=== PATIENT | female | born 2000 | race African-American/Black ===

== ENCOUNTER 2023-06-27 10:20 | Inpatient (IN) | payer OTHER ==
[2023-06-27] MEDS ORDERED: hydrALAZINE 20 MG/ML VIAL SLOW IVP PRN ×3 (10:40→14:58)
[2023-06-27 10:47] VITALS: BMI 37.4
[2023-06-27 11:13] LABS: #Eosinphils 0.1 10x3/uL (0.0-0.5); #Monocytes 0.6 10x3/uL (0.0-1.1); #Neutrophils 5.4 10x3/uL (1.5-8.4); %Basophils 0.4 % (0.0-2.0); %Eosinophils 1.1 % (0.0-6.0); %Neutrophils 72.1 % (40.0-75.0); Hematocrit 30.8 % (34.9-44.5); Hemoglobin 10.3 g/dL (12.0-15.5); Mean Corpuscular HGB CONC 33.4 g/dL (32.0-36.0); Mean Corpuscular Hemoglobin 30.6 pg (27.0-33.0); Mean Corpuscular Volume 91.4 fl (81.6-98.3); Mean Platelet Volume 9.2 fl (7.4-10.4); Platelet Count 259 10x3/uL (150-450); RBC Distribution Width 13.6 % (11.5-14.5); Red Blood Cell (RBC) Count 3.37 10x6/uL (3.90-5.03); White Blood Cell (WBC) Count 7.5 10x3/uL (3.5-10.5)
[2023-06-27 11:22] LABS: ALT (SGPT) Less than 7 U/L (8-55); AST (SGOT) 11 U/L (5-34); Albumin 3.1 g/dL (3.5-5.0); Alkaline Phosphatase 113 U/L (40-100); Anion Gap 12 mmol/L (10-20); BUN (Urea Nitrogen) 8 mg/dL (7.0-18.7); Bilirubin, Total 0.4 mg/dL (0.2-1.2); Calc. Creatinine Clearance 258 mL/min (70-130); Calcium 8.9 mg/dL (7.8-10.44); Carbon Dioxide 21 mmol/L (22-29); Chloride 108 mmol/L (98-107); Estimated GFR 134; Globulin 3.5 g/dL (2.4-3.5); Glucose 117 mg/dL (70-105); Potassium 3.7 mmol/L (3.5-5.1); Protein, Total 6.6 g/dL (6.0-8.3); Sodium 137 mmol/L (136-145)
[2023-06-27 11:33] LABS: Creatinine, Urine 121.77 mg/dL (47-110)
[2023-06-27] MEDS ORDERED: Lidocaine 1% (PF) 30 ML VIAL SC PRN (12:29)
[2023-06-27] MEDS ORDERED: Ondansetron PF 4 MG/2 ML Vial IVP PRN (12:29)
[2023-06-27] MEDS ORDERED: Promethazine HCl 25 MG/ML VIAL IM PRN (12:29)
[2023-06-27] MEDS ORDERED: Misoprostol 200 MCG TAB PR PRN (12:29)
[2023-06-27] MEDS ORDERED: Oxytocin 30 units/NS 500 ML 500 ML IV SCH ×2 (12:30→12:45)
[2023-06-27] MEDS ORDERED: HYDROcodone/Acetaminophen 5/325 mg Tablet PO PRN ×2 (12:32)
[2023-06-27] MEDS ORDERED: Ibuprofen 800 MG TAB PO PRN (12:32)
[2023-06-27] MEDS ORDERED: Penicillin G Potassium 5 MILL.UNITS in Sodium Chloride 0.9% 100 ML IVPB SCH (12:45)
[2023-06-27] MEDS ORDERED: Lidocaine 2% MPF 10 ML AMP (For Epidural Use) ONE (14:00)
[2023-06-27] MEDS ORDERED: Bupivacaine PF 0.5% 30 ML VIAL ONE (14:00)
[2023-06-27] MEDS ORDERED: Bupivacaine 0.25% HCL 30 ML VIAL ONE (14:00)
[2023-06-27] MEDS: Misoprostol 100 MCG TAB VAG SCH ×3 (14:18→21:29)
[2023-06-27 14:25] LABS: Hematocrit 32.2 % (34.9-44.5); Hemoglobin 10.9 g/dL (12.0-15.5); Mean Corpuscular HGB CONC 33.9 g/dL (32.0-36.0); Mean Corpuscular Hemoglobin 31.7 pg (27.0-33.0); Mean Corpuscular Volume 93.6 fl (81.6-98.3); Mean Platelet Volume 9.4 fl (7.4-10.4); Platelet Count 264 10x3/uL (150-450); RBC Distribution Width 13.6 % (11.5-14.5); Red Blood Cell (RBC) Count 3.44 10x6/uL (3.90-5.03)
[2023-06-27] MEDS ORDERED: Labetalol HCl 100 MG/20 ML VIAL ONE (14:49)
[2023-06-27] MEDS ORDERED: Lorazepam 2 MG/ML VIAL SLOW IVP PRN (14:58)
[2023-06-27] MEDS ORDERED: Labetalol HCl 100 MG/20 ML VIAL SLOW IVP PRN ×3 (14:58)
[2023-06-27] MEDS ORDERED: Magnesium Sulfate 20 gm/500 ml 20 GM/500 ML BAG IVPB PRN (14:58)
[2023-06-27] MEDS ORDERED: Calcium Gluc 4.6 MEQ/10 ML (100 MG/ML) SLOW IVP PRN (14:58)
[2023-06-27 16:15] LABS: HBSAg Index 0.16 S/CO (0-0.99); Hep B Surf Ag - L&D Non-Reactive S/CO (NonReactive)
[2023-06-27 16:17] LABS: Syphilis Antibody Nonreactive (Nonreactive); Syphilis Antibody Index 0.04 S/CO (<1.00 Non-Reactive)
[2023-06-27] MEDS: Penicillin G 2.5 MILL.units 2.5 MILL.UNITS in Premix 1 BAG IVPB SCH (21:34)
[2023-06-28] MEDS: Penicillin G 2.5 MILL.units 2.5 MILL.UNITS in Premix 1 BAG IVPB SCH ×3 (01:49→12:27)
[2023-06-28] MEDS: fentaNYL 50 mcg/mL 1 mL Vial SLOW IVP SCH ×2 (09:17→11:16)
[2023-06-28] MEDS ORDERED: fentaNYL 50 mcg/mL 1 mL Vial ONE (11:12)
[2023-06-28] MEDS ORDERED: fentaNYL/Ropivacaine Epidural 100 ML ONE (12:19)
[2023-06-28] MEDS ORDERED: Moisturizing Cream (Eucerin) 113 GM JAR TOP PRN ×2 (12:50→21:32)
[2023-06-28] MEDS ORDERED: Acetaminophen 325 MG TAB PO PRN (12:50)
[2023-06-28] MEDS ORDERED: Naloxone HCl 0.4 mg/ml Vial IVP PRN ×4 (12:50→21:32)
[2023-06-28] MEDS ORDERED: Ondansetron PF 4 MG/2 ML Vial IVP PRN ×3 (12:50→21:32)
[2023-06-28] MEDS ORDERED: diphenhydrAMINE 50 MG/ML VIAL IVP PRN ×2 (12:50→21:32)
[2023-06-28] MEDS ORDERED: Promethazine HCl 25 MG/ML VIAL IM PRN ×2 (12:50→21:32)
[2023-06-28] MEDS ORDERED: Lactated Ringer's 500 ML IV PRN (12:50)
[2023-06-28] MEDS ORDERED: ePHEDrine Sulfate 50 MG/10 ML VIAL SLOW IVP PRN (12:50)
[2023-06-28] MEDS ORDERED: fentaNYL 2 mcg/Ropivacaine 0.2% Epidural 100 ML CADD EPIDURAL SCH (13:00)
[2023-06-28] MEDS ORDERED: Communication Order-Pharmacy FS SCH ×2 (13:00→21:45)
[2023-06-28] MEDS: Lactated Ringer's 1,000 ML IV SCH (13:48)
[2023-06-28] MEDS ORDERED: Famotidine/PF 20 mg/2ml Vial SLOW IVP PRN (20:07)
[2023-06-28] MEDS ORDERED: Bicitra 30 ML UDCUP PO PRN (20:07)
[2023-06-28] MEDS ORDERED: Azithromycin 500 MG in Sodium Chloride 0.9% 250 ML 250 ML IVPB SCH (20:15)
[2023-06-28] MEDS ORDERED: CEFAZOLIN 2 GM in Sodium Chloride 0.9% 100 ML IVPB SCH (20:15)
[2023-06-28] MEDS ORDERED: Oxytocin 10 UNITS/ML VIAL ONE ×2 (20:18→20:59)
[2023-06-28] MEDS ORDERED: Dexamethasone 4 mg/ml Vial ONE ×2 (20:18→20:54)
[2023-06-28] MEDS ORDERED: Ondansetron PF 4 MG/2 ML Vial ONE (20:18)
[2023-06-28] MEDS ORDERED: Morphine PF 10 MG/10 ML VIAL ONE (20:18)
[2023-06-28] MEDS ORDERED: CEFAZOLIN 2 GM VIAL ONE (20:19)
[2023-06-28] MEDS ORDERED: Azithromycin 500 MG VIAL ONE (20:19)
[2023-06-28] MEDS ORDERED: Ketorolac Tromethamine 30 MG/ML VIAL ONE (21:26)
[2023-06-28] MEDS ORDERED: fentaNYL 50 mcg/mL 1 mL Vial SLOW IVP PRN (21:32)
[2023-06-28] MEDS ORDERED: Meperidine HCl/PF 25 MG/ML VIAL SLOW IVP PRN (21:32)
[2023-06-28] MEDS ORDERED: Morphine 4 MG/ML VIAL SLOW IVP PRN (21:32)
[2023-06-28] MEDS ORDERED: Naloxone HCl 0.4 mg/ml Vial IV PRN (21:32)
[2023-06-28] MEDS ORDERED: Promethazine HCl 25 MG SUPP PR PRN (21:32)
[2023-06-28] MEDS ORDERED: Ketorolac Tromethamine 30 MG/ML VIAL IVP SCH (21:45)
[2023-06-28 22:23] LABS: Analyzer IN Cardio CS NICU; Critical Notified By: Udy, RRT
[2023-06-29] MEDS: Misoprostol 100 MCG TAB VAG SCH ×3 (02:47→02:53)
[2023-06-29] MEDS: Penicillin G 2.5 MILL.units 2.5 MILL.UNITS in Premix 1 BAG IVPB SCH ×2 (02:48→02:49)
[2023-06-29] MEDS: Lactated Ringer's 1,000 ML IV SCH (02:49)
[2023-06-29] MEDS ORDERED: Lanolin Ointment 7 GM TUBE TOP PRN (02:55)
[2023-06-29] MEDS ORDERED: hydrALAZINE 20 MG/ML VIAL SLOW IVP PRN (02:55)
[2023-06-29] MEDS ORDERED: Boostrix 0.5 ML (Tdap) VIAL (>/=7 yrs of age) IM ONE (02:55)
[2023-06-29] MEDS ORDERED: Ketorolac Tromethamine 30 MG/ML VIAL IVP PRN ×2 (04:00→08:12)
[2023-06-29 04:45] LABS: Hematocrit 31.1 % (34.9-44.5); Hemoglobin 10.3 g/dL (12.0-15.5); Mean Corpuscular HGB CONC 33.1 g/dL (32.0-36.0); Mean Corpuscular Hemoglobin 30.4 pg (27.0-33.0); Mean Corpuscular Volume 91.7 fl (81.6-98.3); Mean Platelet Volume 9.1 fl (7.4-10.4); Platelet Count 248 10x3/uL (150-450); RBC Distribution Width 13.5 % (11.5-14.5); Red Blood Cell (RBC) Count 3.39 10x6/uL (3.90-5.03); White Blood Cell (WBC) Count 16.2 10x3/uL (3.5-10.5)
[2023-06-29] MEDS: Prenatal Vitamin 1 TAB PO SCH (08:33)
[2023-06-29] MEDS: Ibuprofen 800 MG TAB PO SCH ×2 (12:09→19:55)
[2023-06-29] MEDS ORDERED: HYDROcodone/Acetaminophen 5/325 mg Tablet PO PRN (12:09)
[2023-06-29] MEDS: HYDROcodone/Acetaminophen 5/325 mg Tablet PO PRN ×3 (14:18→22:11)
[2023-06-29] MEDS: Simethicone Chewable 80 MG TAB PO PRN (17:45)
[2023-06-30] MEDS: HYDROcodone/Acetaminophen 5/325 mg Tablet PO PRN ×3 (02:29→10:50)
[2023-06-30 05:29] LABS: Hematocrit 26.1 % (34.9-44.5); Hemoglobin 8.7 g/dL (12.0-15.5); Mean Corpuscular HGB CONC 33.3 g/dL (32.0-36.0); Mean Corpuscular Hemoglobin 31.3 pg (27.0-33.0); Mean Corpuscular Volume 93.9 fl (81.6-98.3); Mean Platelet Volume 9.3 fl (7.4-10.4); Platelet Count 218 10x3/uL (150-450); Red Blood Cell (RBC) Count 2.78 10x6/uL (3.90-5.03); White Blood Cell (WBC) Count 11.4 10x3/uL (3.5-10.5)
[2023-06-30] MEDS: Ibuprofen 800 MG TAB PO SCH ×3 (05:31→20:26)
[2023-06-30] MEDS ORDERED: Ferrous Sulfate 325 MG TAB PO SCH (06:15)
[2023-06-30] MEDS: Prenatal Vitamin 1 TAB PO SCH (08:52)
[2023-06-30] MEDS ORDERED: Docusate 100 MG CAP PO PRN (15:11)
[2023-06-30] MEDS: Simethicone Chewable 80 MG TAB PO PRN (15:15)
[2023-07-01] MEDS: Ibuprofen 800 MG TAB PO SCH ×2 (04:08→14:09)
[2023-07-01 05:34] LABS: Hematocrit 29.4 % (34.9-44.5); Hemoglobin 9.9 g/dL (12.0-15.5); Mean Corpuscular HGB CONC 33.7 g/dL (32.0-36.0); Mean Corpuscular Hemoglobin 31.4 pg (27.0-33.0); Mean Corpuscular Volume 93.3 fl (81.6-98.3); Mean Platelet Volume 9.2 fl (7.4-10.4); Platelet Count 264 10x3/uL (150-450); RBC Distribution Width 13.7 % (11.5-14.5); Red Blood Cell (RBC) Count 3.15 10x6/uL (3.90-5.03)
[2023-07-01] MEDS: Prenatal Vitamin 1 TAB PO SCH (08:14)
[2023-07-01 14:08] VITALS: BP 153/85; TEMP 98
== END 2023-07-01 15:00 | disposition home or self-care (01) | DRG 788 ==
LOC: CSHLD/OP 10:20 → CSHLD 12:53 → CSHPP 06-29 02:08
PROVIDERS: ADMIT Obstetrics & Gynecology; ATTEND Obstetrics & Gynecology
PROC: 10D00Z1 Extraction of Products of Conception, Low, Open Approach (ICD-10-PCS; principal; 2023-06-28)
PROC: 10H07YZ Insertion of Other Device into Products of Conception, Via Natural or Artificial Opening (ICD-10-PCS; 2023-06-28)
PROC: 10907ZC Drainage of Amniotic Fluid, Therapeutic from Products of Conception, Via Natural or Artificial Opening (ICD-10-PCS; 2023-06-28)
DX: O13.4 Gestational [pregnancy-induced] hypertension without significant proteinuria, complicating childbirth (principal); Z3A.38 38 weeks gestation of pregnancy; Z37.0 Single live birth; O76 Abnormality in fetal heart rate and rhythm complicating labor and delivery; O99.824 Streptococcus B carrier state complicating childbirth
CPT/HCPCS: 36415; 36416; 80053; 82570; 82805; 84156; 85025; 85027; 86780; 86850; 86900; 86901; 87340; J1100; J1885; J2274; J2405; J2540; J2590; J3010; J3490; J7120; S0020